=== PATIENT | male | born 1950 | race Caucasian/White ===

== ENCOUNTER 2019-03-17 17:59 | Emergency (ER) | payer MEDICARE ==
--- NOTE | 2019-03-17 18:54 | EDM.PDOC ---
ED HPI GENERAL MEDICAL PROBLEM - General Chief Complaint: Abdominal Pain Stated Complaint: ABDOMINAL PAIN Time Seen by Provider: 03/17/19 18:35 Source of Information: Reports: Patient History Limitations: Reports: No Limitations - History of Present Illness INITIAL COMMENTS - FREE TEXT/NARRATIVE: 68 yo male here with diffuse abdominal pain that began last night. No hx of the same. Did accidentally swallow a wire about 18 mos ago that had to be surgically removed, no other surgeries. He has anorexia. Had a small BM this morning. No nausea or vomiting. Coughing does not change his pain. Onset: Gradual Onset Date: 03/16/19 Duration: Day(s): (1), Getting Worse Location: Reports: Abdomen, Generalized Quality: Reports: Dull Severity: Moderate Improves with: Reports: Rest (and a warm blanket here in the ER.) Worsens with: Reports: Eating, Movement Associated Symptoms: Reports: Loss of Appetite. Denies: Fever/Chills, Nausea/ Vomiting Treatments FLAGMAN: Reports: Other (see below) (none) Abdomen Pain Score (Numeric/FACES): 6 - Related Data Allergies Allergy/AdvReac Type Severity Reaction Status Date / Time Tetanus Vaccines and Toxoid Allergy Other Verified 03/17/19 18:13 Home Meds: Home Meds Aspirin [Halfprin] 81 mg PO DAILY 03/17/19 [History] Docusate Sodium [Colace] 100 mg PO TID 03/17/19 [History] Glucosamine [Glucosamine Sulfate] 1,500 tab PO DAILY 03/17/19 [History] Lisinopril 40 mg PO DAILY 03/17/19 [History] Metoprolol Succinate 50 mg PO DAILY 03/17/19 [History] Kempton-3S/DHA/Epa/Fish Oil [Fish Oil Kempton-3 Softgel] 1 tab PO DAILY 03/17/19 [ History] Sennosides [Senna] 1 tab PO DAILY 03/17/19 [History] Simvastatin 20 mg PO DAILY 03/17/19 [History] Ubidecarenone [Co Q-10] 400 mg PO DAILY 03/17/19 [History] Past Medical History Cardiovascular History: Reports: High Cholesterol, Hypertension Gastrointestinal History: Reports: Chronic Constipation Musculoskeletal History: Reports: Back Pain, Chronic Neurological History: Reports: None Oncologic (Cancer) History: Reports: Basal Cell Carcinoma - Past Surgical History Head Surgeries/Procedures: Reports: None Cardiovascular Surgical History: Reports: None GI Surgical History: Reports: Other (See Below) Other GI Surgeries/Procedures: colon resection Neurological Surgical History: Reports: Lumbar Spine Musculoskeletal Surgical History: Reports: Knee Replacement, Shoulder Surgery Oncologic Surgical History: Reports: None Dermatological Surgical History: Reports: None Social & Family History - Tobacco Use Smoking Status *Q: Never Smoker Second Hand Smoke Exposure: No - Caffeine Use Caffeine Use: Reports: Coffee - Alcohol Use Days Per Week of Alcohol Use: 3 Number of Drinks Per Day: 1 Total Drinks Per Week: 3 - Recreational Drug Use Recreational Drug Use: No ED ROS GENERAL - Review of Systems Review Of Systems: See Below Constitutional: Reports: No Symptoms HEENT: Reports: No Symptoms Respiratory: Reports: No Symptoms Cardiovascular: Reports: No Symptoms Endocrine: Reports: No Symptoms GI/Abdominal: Reports: Abdominal Pain, Anorexia, Decreased Appetite. Denies: Constipation, Diarrhea, Distension, Flatus, Hematemesis, Hematochezia, Melena, Nausea, Vomiting : Reports: No Symptoms Musculoskeletal: Reports: No Symptoms Skin: Reports: No Symptoms Neurological: Reports: No Symptoms Psychiatric: Reports: No Symptoms ED EXAM, GI/ABD - Physical Exam Exam: See Below Exam Limited By: No Limitations General Appearance: Alert, WD/WN, No Apparent Distress Eyes: Bilateral: Normal Appearance Ears: Normal External Exam, Normal Canal Nose: Normal Inspection, No Blood Throat/Mouth: Normal Inspection, Normal Lips, Normal Oropharynx, Normal Voice, No Airway Compromise Head: Atraumatic, Normocephalic Neck: Normal Inspection Respiratory/Chest: No Respiratory Distress, Lungs Clear, Normal Breath Sounds, No Accessory Muscle Use Cardiovascular: Regular Rate, Rhythm, No Edema GI/Abdominal Exam: Normal Bowel Sounds, Soft, No Distention, Tender (mild, diffuse). No: Non-Tender Back Exam: Normal Inspection. No: CVA Tenderness (R), CVA Tenderness (L) Extremities: Normal Inspection, Normal Range of Motion, Non-Tender, No Pedal Edema Neurological: Alert, Oriented, CN II-XII Intact, Normal Cognition, No Motor/ Sensory Deficits Psychiatric: Normal Affect, Normal Mood Skin Exam: Warm, Dry, Intact, Normal Color, No Rash Course - Vital Signs Text/Narrative:: Does not want to stay here. Wants to go to [facility]. Stable will transfer to [facility]. Dr. accepted @ Last Recorded V/S: Last Vital Signs Temp 36.4 C 03/17/19 18:14 Pulse 64 03/17/19 19:19 Resp 17 03/17/19 19:19 BP 143/74 H 03/17/19 19:19 Pulse Ox 98 03/17/19 19:19 - Orders/Labs/Meds Orders: Active Orders 24 hr Category Date Time Status Iopamidol [Isovue-300 (61%)] Med 03/17/19 20:00 Active 100 ml IV . DIRECTED Lactated Ringers [Ringers, Lactated] 1,000 ml Med 03/17/19 19:00 Active IV ASDIRECTED Medication Orders Lactated Ringer's (Ringers, Lactated) 1,000 mls @ 500 mls/hr IV ASDIRECTED TROY Last Admin: 03/17/19 19:31 Dose: 500 mls/hr Iopamidol (Isovue-300 (61%)) 100 ml IV . DIRECTED TROY Last Admin: 03/17/19 20:07 Dose: 100 ml Labs: Laboratory Tests 03/17/19 03/17/19 03/17/19 Range/Units 18:59 18:59 18:59 WBC 11.9 H (4.5-11.0) K/uL RBC 4.89 (4.30-5.90) M/uL Hgb 14.9 (12.0-15.0) g/dL Hct 46.5 (40.0-54.0) % MCV 95 (80-98) fL MCH 31 (27-31) pg MCHC 32 (32-36) % Plt Count 259 (150-400) K/uL Sodium 141 (140-148) mmol/L Potassium 4.3 (3.6-5.2) mmol/L Chloride 103 (100-108) mmol/L Carbon Dioxide 29 (21-32) mmol/L Anion Gap 8.9 (5.0-14.0) mmol/L BUN 16 (7-18) mg/dL Creatinine 1.1 (0.8-1.3) mg/dL Est Cr Clr Drug Dosing 71.00 mL/min Estimated GFR (MDRD) > 60 (>60) Glucose 118 H (74-106) mg/dL Calcium 9.3 (8.5-10.1) mg/dL C-Reactive Protein 0.23 (0.0-0.3) mg/dL Urine Color Urine Appearance Urine pH (4.5-8.0) Ur Specific [place] (1.008-1.030) Urine Protein (NEGATIVE) mg/dL Urine Glucose (UA) (NEGATIVE) mg/dL Urine Ketones (NEGATIVE) mg/dL Urine Occult Blood (NEGATIVE) Urine Nitrite (NEGAITVE) Urine Bilirubin (NEGATIVE) Urine Urobilinogen (NORMAL) mg/dL Ur Leukocyte Esterase (NEGATIVE) Urine RBC (0-5) Urine WBC (0-5) Ur Epithelial Cells Amorphous Sediment Urine Bacteria Urine Mucus 03/17/19 Range/Units 19:33 WBC (4.5-11.0) K/uL RBC (4.30-5.90) M/uL Hgb (12.0-15.0) g/dL Hct (40.0-54.0) % MCV (80-98) fL MCH (27-31) pg MCHC (32-36) % Plt Count (150-400) K/uL Sodium (140-148) mmol/L Potassium (3.6-5.2) mmol/L Chloride (100-108) mmol/L Carbon Dioxide (21-32) mmol/L Anion Gap (5.0-14.0) mmol/L BUN (7-18) mg/dL Creatinine (0.8-1.3) mg/dL Est Cr Clr Drug Dosing mL/min Estimated GFR (MDRD) (>60) Glucose (74-106) mg/dL Calcium (8.5-10.1) mg/dL C-Reactive Protein (0.0-0.3) mg/dL Urine Color Yellow Urine Appearance Clear Urine pH 6.0 (4.5-8.0) Ur Specific [place] 1.020 (1.008-1.030) Urine Protein Negative (NEGATIVE) mg/dL Urine Glucose (UA) Normal (NEGATIVE) mg/dL Urine Ketones 50 H (NEGATIVE) mg/dL Urine Occult Blood Trace (NEGATIVE) Urine Nitrite Negative (NEGAITVE) Urine Bilirubin Negative (NEGATIVE) Urine Urobilinogen Normal (NORMAL) mg/dL Ur Leukocyte Esterase Negative (NEGATIVE) Urine RBC 0-5 (0-5) Urine WBC Not seen (0-5) Ur Epithelial Cells Not seen Amorphous Sediment Not seen Urine Bacteria Not seen Urine Mucus Moderate Meds: Medications Generic Name Dose Route Start Last Admin Trade Name Freq PRN Reason Stop Dose Admin Lactated Ringer's 1,000 mls @ 500 mls/hr 03/17/19 19:00 03/17/19 19:31 Ringers, Lactated IV 500 mls/hr ASDIRECTED TROY Administration Iopamidol 100 ml 03/17/19 20:00 03/17/19 20:07 Isovue-300 (61%) IV 100 ml . DIRECTED TROY Administration Discontinued Medications Generic Name Dose Route Start Last Admin Trade Name Freq PRN Reason Stop Dose Admin Sodium Chloride 100 mls @ 3 mls/sec 03/17/19 19:53 03/17/19 20:07 Normal Saline IV 03/17/19 19:54 3 mls/sec ONETIME ONE Administration - Radiology Interpretation Free Text/Narrative:: CT abd/pelvis with IV contrast-SBO at site of prior anastomosis. CT Results Date: 03/17/19 CT Results Time: 21:00 Departure - Departure Time of Disposition: 21:40 Disposition: DC/Tfer to Acute Hospital 02 Condition: Fair Clinical Impression: SBO (small bowel obstruction) - Discharge Information *PRESCRIPTION DRUG MONITORING PROGRAM REVIEWED*: No *COPY OF PRESCRIPTION DRUG MONITORING REPORT IN PATIENT SHAHRZAD: No Referrals: Juan Melvin MD [Primary Care Provider] - Forms: ED Department Discharge Additional Instructions: Do not eat or drink. Go directly to [facility] where you will go to admitting and then be a direct admit to Dr. Sloan. - My Orders Last 24 Hours: My Active Orders 03/17/19 19:00 Lactated Ringers [Ringers, Lactated] 1,000 ml IV ASDIRECTED 03/17/19 20:00 Iopamidol [Isovue-300 (61%)] 100 ml IV . DIRECTED - Assessment/Plan Last 24 Hours: My Active Orders 03/17/19 19:00 Lactated Ringers [Ringers, Lactated] 1,000 ml IV ASDIRECTED 03/17/19 20:00 Iopamidol [Isovue-300 (61%)] 100 ml IV . DIRECTED
[2019-03-17] MEDS ORDERED: Lactated Ringers 1,000 ML IV SCH (19:00)
[2019-03-17] MEDS ORDERED: Sodium Chloride 0.9% 100 ML IV ONE (19:53)
[2019-03-17] MEDS ORDERED: Iopamidol 612 MG/ML 100 ML Bottle IV SCH (20:00)
--- NOTE | 2019-03-17 20:51 | CRLCT ---
INDICATION: Abdominal pain. COMPARISON: None. TECHNIQUE: CT abdomen and pelvis with intravenous contrast; coronal and sagittal reformats. FINDINGS: No abnormal intra pulmonary nodular densities through the lung bases. No evidence of pleural effusion. Normal size cardiac silhouette without any evidence of pericardial effusion. No focal hepatic or splenic pathology. No pancreatic pathology. Gallbladder is unremarkable. No evidence of biliary duct dilatation. No pancreatic ductal dilatation. No peripancreatic inflammatory changes. Gallbladder is unremarkable. No adrenal pathology. No kidney stones or obstructive uropathy. Multiple peripelvic cysts both kidneys. Herniation of the retroperitoneal fat into the posterolateral abdominal wall on the left side indicating a hernia slice 73 series 2. Evidence of segmental resection of the small bowel with end-to-end anastomosis with obstruction at the site of anastomosis. Several loops of markedly dilated small bowel with a zone of transition identified on slice 102 series 2 as well as slice 131 series 2. No pneumoperitoneum. No evidence of intra-abdominal abscess. Splenic vein, superior mesenteric vein and the portal vein are unremarkable. Colon is decompressed. Postop changes with anterior lumbar fusion at L5-S1. IMPRESSION: 1. Small bowel obstruction. 2. It does appear there is possible obstruction at the site of previous anastomosis within the small bowel. 3. Normal appendix. 4. Peripelvic cysts both kidneys without any obstructive uropathy or perinephric pathology. 5. Herniation of the retroperitoneal fat into the abdominal wall musculature left mid abdomen. 6. Postop changes with anterior lumbar fusion and L5-S1. Please note that all CT scans at this facility use dose modulation, iterative reconstruction, and/or weight-based dosing when appropriate to reduce radiation dose to as low as reasonably achievable. Dictated by Amandeep Martinez MD @ Mar 17 2019 8:40PM Signed by Dr. Amandeep Martinez @ Mar 17 2019 8:50PM
== END 2019-03-17 22:00 ==
LOC: JP.ED 17:59
DX: K56.609 Unspecified intestinal obstruction, unspecified as to partial versus complete obstruction (principal); I10 Essential (primary) hypertension; Z88.7 Allergy status to serum and vaccine; Z79.899 Other long term (current) drug therapy; Z79.82 Long term (current) use of aspirin
CPT/HCPCS: 36415; 74177; 80048; 81001; 85027; 86140; 96360; 96361; 99285; J7030; J7120; Q9967